=== PATIENT | female | born 1980 | race Caucasian/White ===

== ENCOUNTER 2018-12-27 08:42 | Day surgery (SDC) | payer MEDICAID, SELFPAY ==
[2018-12-22 14:49] LABS: Hematocrit 41.9 % (37-47); Hemoglobin 13.8 g/dl (12.0-15.0); Mean Corp Hgb Conc 32.9 g/gl (32-36); Mean Corpuscular Hgb 28.2 pg (27.0-32.0); Mean Corpuscular Volume 85.7 fL (81-99); Mean Platelet Vol. 9.8 fl (6.2-12.0); Platelet Count 447 K/mm3 (150-450); RBC Distribution Width CV 12.6 % (11.6-14.6); Red Blood Count 4.89 M/mm3 (4.2-5.4)
[2018-12-22 14:51] LABS: Partial Thromboplast Time 27.1 Seconds (24.1-36.2); Prothrombin Time (Protime)PT. 13.4 SECONDS (11.7-14.9)
[2018-12-22 14:56] LABS: Scan Indicated on CBC? Y/N NO
[2018-12-22 16:01] LABS: Pregnancy, Serum, hCG Quali. NEGATIVE Negative (0-9 Nonpreg)
--- NOTE | 2018-12-23 10:39 | PCM.HP.BLA ---
History and Physical Date of Admission: 12/27/18 Surgical History and Physical Vivi Mckeon, a 38 year old female 3 0 1 0 3, presents for D and C and hysteroscopy on December 27, 2018 at 10:30. -- Thick EM on U/S -- Thu Felix has had extra vaginal discharge which is clear in color and non-odorous, but there all the time and low abdominal pains that come and go. Thickened Endometrial Lining which began US done on 10-01-18 at [facility]. Vivi claims it started suddenly and has been present 2-3 months. It occurs all the time. It is located in the lower abdomen. Severity is moderate and very concerned; Associated signs and symptoms are has Lupus.; Associated signs and symptoms are cramping, aching, stabbing.; Associated signs and symptoms are has liver cyst, on OCPs for pelvic pain control and control. Additional comments are: Referred by [facility] Additional comments are: hx of endometriosis dx per Dr. Lozano.; Additional comments are: u/s today just after menses shows 15 mm stripe without polyp. MEDICATIONS HISTORY: Patient is also takin. prednisone 10 mg tablet, q day 2. metoprolol tartrate 25 mg tablet, One pill by mouth twice a day ALLERGIES: NKDA, Sulfasalazine, Hives, Sulfa (Sulfonamide Antibiotics) and Hives and/or rash Infections - Chicken pox Illnesses - Lupus, scoriatic arthritis Accidents - no injuries of consequence Hospitalizations - Childbirth GI Blee, ulcerative colitis; Review of Systems: GENERAL - fatigue SKIN - Denies skin changes EYES - Denies visual changes EARS - Denies difficulty hearing NOSE - Denies nasal congestion or bleeding MOUTH - Denies sore throat or difficulty swallowing NECK - Denies pain or swelling RESPIRATORY - Denies shortness of breath or wheezing CARDIOVASCULAR - Denies palpitations or chest pain GASTROINTESTINAL - Denies nausea, vomiting, diarrhea, constipation GENITOURINARY - Denies dysuria, frequency of urination, incontinence of urine MUSCULOSKELETAL - Denies joint or muscle pain NEUROLOGICAL - Denies localized numbness or weakness PSYCHIATRIC - Denies depression or anxiety ENDOCRINE - Denies heat or cold intolerance, weight loss or gain HEMATO-IMMUNOLOGIC - Denies excessive bleeding with cuts SOCIAL HISTORY: Alcohol Use - denies drinking Smoking - used to smoke but quit and quit 10 years ago Diet - balanced Diet Lifestyle - moderate stress lifestyle and Exercise - toning exercises Seat Belt Use - always 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 Father: Heart Disease. MENSTRUAL HISTORY: LMP Known?- DefiniteAmount/Duration - 4-5 DAYS, Regularity - Regular, Frequency - monthly days, LMP - 12/13/18, Age Onset Menarche - 11 PAST PREGNANCIES: Total Pregnancies - 4; Full Term Pregnancies - 3; Premature - 0; Abortions, Induced - 0; Abortions, Spontaneous - 1; Ectopics - 0; Multiple Births - 0; Living Children - 3 SURGICAL HISTORY: 1. 06/14/2014 colonoscopy ; - 2. Laparoscopy, 1999 ; Shikary - removed endometriosis PHYSICAL EXAM BP- 112/76 Sitting, Right arm, regular cuff Weight- 242.23432 lbs Height- 66.5 inch BMI:38.56 CONSTITUTIONAL - NAD, well nourished, and well developed SKIN - No rash, lesions, or ulcers HEENT - Normocephalic, PERRLA, EOMI NECK - No nodes, no nuchal rigidity and thyroid normal size and texture LYMPH NODES - Palpation of lymph nodes in neck and groins within normal limits LUNGS - CTA x2 without wheezes, crackles or rales CARDIAC - Regular rate and rhythm without rubs, murmurs, or gallops ABDOMEN - Without hepatosplenomegaly, distention, masses, rebound, or guarding; normal bowel sounds; no hernias EXTREMITIES - No edema or calf tenderness NEUROLOGICAL - Cranial nerves II-XII grossly intact PSYCHIATRIC - A and O to time, place, person, mood and affect External Genitial Vagina - non-tender without lesions Urethra/Urethral Meatus - non-tender Bladder - non-tender Vagina - vaginal pena are pink and moist without loss of rugae and no evidence of atropy Cervix - without cervical motion tenderness and has normal size and features without evident lesions Uterus - multiparous size 6 cm & wt 75-125 g Adnexa - clear without masses or tenderness ASSESSMENT/PLAN: 1. Nonspecific Abnormal Findings On Radiological And Other Examination Of Genitourinary Organs With continued thickened EM lining plan to proceed with D and C and H/S. Discussed RBAs and all questions answered. Pt desires to eventually have hysterectomy as she continues to have pain with known endometriosis.
--- NOTE | 2018-12-27 | EMB_PTH ---
PATIENT: MIKI ALAN LOC: [facility] U#:[id number] AGE/SX: 38/F ROOM: RE12/27/[address]: Dr. Kevin Santillan MD : 1980 BED: DIS: 12/27/2018 SPEC #: [id number] RECD: 12/27/18 13:27 STATUS: ASIA MADISYN #: [id number] ISELA: 12/27/18 00:[address]: Kevin Santillan DEPT: SURGICAL PATHOLOGY RECD BY: Karl Verdugo ENTERED: 12/27/18 13:28 SP TYPE: ENDOM BX/C ANA DR: Dr. Sergio Bains MD Tissues: Endometrium, NOS Procedures: Surgery Specimen Level IV HEADER OPERATION: Hysteroscopy, dilation and curettage PRE-OP DIAGNOSIS: Endometrial polyp TISSUE SUBMITTED: Endometrial curettings MICROSCOPIC DIAGNOSIS Endometrial curettings: Mildly disordered proliferative endometrium. Fragments of benign ecto- and endocervical mucosa with chronic inflammation. SJ:elizabeth 12/28/18 MICROSCOPIC DESCRIPTION Slides are reviewed. GROSS DESCRIPTION Received in fixative is one container labeled with the patient's name and designated endometrial curettings. The specimen consists of multiple fragments of hemorrhagic soft tissue mixed with blood clot that in aggregate measure 7.5 x 3 x 0.3 cm. The entire specimen is submitted in three cassettes. / AZIZA:elizabeth 12/27/18 TC:5 CPT: 31780
[2018-12-27 09:27] VITALS: BP 104/60; PULSE 52; RESP 14; TEMP 36.8; O2SAT 98; BMI 38.4
[2018-12-27 09:32] LABS: Internal QC Validated? YES +Cl - CLEAR BKGD; Pregnancy, Urine Negative Negative
--- NOTE | 2018-12-27 09:44 | PCM.OPRPT ---
Report of Operation Date of Procedure: 12/27/18 Pre-Operative Diagnosis: Endometrial Polyp, Abnormal Uterine Bleeding Post-Operative Diagnosis: Endometrial Polyp, Abnormal Uterine Bleeding Surgery/Procedure Performed:: Diagnostic hysteroscopy, Dilation and Curettage Description of Surgical Findings:: 8 cm endometrial cavity with 1 cm endometrial polyp and plush endometrium. Type of Anesthesia:: MAC Anesthesiologist: Gabe Iniguez Specimen's removed: Endometrial Curettings and Endometrial Polyp Estimated Blood Loss (mL): Minimal Fluids Replaced: Crystalloid Description of Procedure: Surgeon: Kevin Santillan MD, FACOG Indications: This is a 28 year old patient who has the above diagnosis. The patient has been counseled regarding the risk and indications of this procedure including the possibility of bleeding, infection, and injury to surrounding structures such as bowel bladder. All questions were answered and we consider the patient well-informed. Procedure: The patient was taken to the operating room where after induction of general anesthesia, she was placed in the dorsolithotomy position and prepped and draped in the usual sterile fashion. Anterior cervix was grasped with the tenaculum and dilated to about 4-5 mm. A 3 mm hysteroscope was placed in the uterus of the above findings were noted. Cervix was dilated to about 7-8 mm and uterus was gently curetted removing all contents. Hysteroscope was reinserted and all material was noted to be removed. In the course of the procedure approximately 100 cc of saline distending media was used and virtually all of this was recovered. Patient tolerated procedure well was taken to recovery room in satisfactory condition sponge instrument and needle counts were all reportedly correct. Estimated blood loss for the case was minimal. Specimens to pathology was endometrial curettings - Complications None - Admit VTE Documentation VTE Present on Admission: Yes VTE Mechan Device Prophylaxis: SCD's VTE Pharm Prophylaxis ordered?: No Reason prophylaxis not ordered:: Treatment Not Indicated
--- NOTE | 2018-12-27 09:48 | DCINST_ITS ---
Discharge Diet: No Restrictions Discharge Activity: Return to Normal Activity, May Shower, May Take a Tub Bath May resume sexual activity in: 2 weeks Call your doctor if you observe: Fever of 101 or Higher, Inability to urinate, Inability to have a bowel movement, Using more than one pad per hour Allergies/Adverse Reactions: Allergies Sulfa (Sulfonamide Antibiotics) Allergy (Verified 12/21/18 14:11) Hives Medications to take at Discharge Metoprolol Succinate [Toprol Xl] 25 mg PO BID 12/21/18 Prednisone 10 mg PO DAILY 12/21/18 Primary Care Physician: Sergio Bains MD [Primary Care Provider] - Test Results: Test results from this visit will be discussed in further detail at your follow- up appointment, if applicable. Please Follow Up With: Kevin Santillan MD When: 2-3 weeks
[2018-12-27 11:00] VITALS: BP 104/60; BP 95/58; PULSE 77; RESP 16; TEMP 35.8; O2SAT 96
[2018-12-27 11:05] VITALS: BP 104/60; BP 104/68; PULSE 79; RESP 16; O2SAT 100
[2018-12-27 11:10] VITALS: BP 104/60; BP 107/38; PULSE 63; RESP 16; O2SAT 99
[2018-12-27 11:15] VITALS: BP 104/60; BP 106/63; PULSE 60; RESP 16; TEMP 36.3; O2SAT 98
[2018-12-27 11:45] VITALS: BP 104/60
== END 2018-12-27 11:51 | disposition home or self-care (01) ==
LOC: SDC 08:42 → AC 08:50
PROVIDERS: Anesthesiology; Family Provider Family Medicine; PCP Family Medicine; Referring Provider Obstetrics & Gynecology; Visit Provider Obstetrics & Gynecology
PROC: 0UDB8ZZ Extraction of Endometrium, Via Natural or Artificial Opening Endoscopic (ICD-10-PCS; CPT 58558; principal; 2018-12-27 10:20)
DX: N93.9 Abnormal uterine and vaginal bleeding, unspecified (principal); N84.0 Polyp of corpus uteri; M32.9 Systemic lupus erythematosus, unspecified; Z87.891 Personal history of nicotine dependence; L40.50 Arthropathic psoriasis, unspecified; I45.6 Pre-excitation syndrome
CPT/HCPCS: 00952; 58558; 36415; 81025; 84703; 85027; 85610; 85730; 86850; 86900; 88305; J7120

== ENCOUNTER → 2020-03-26 15:36 | Outpatient (CLI) | payer MEDICAID, SELFPAY ==
[2020-03-30 01:03] LABS: HPV Reflexed? NOT INDICATED
== END ==
PROVIDERS: PCP Family Medicine; Visit Provider Obstetrics & Gynecology
DX: Z12.4 Encounter for screening for malignant neoplasm of cervix (principal)
CPT/HCPCS: 88175; G0145